=== PATIENT | female | born 1980 | race Caucasian/White ===

== ENCOUNTER 2017-09-25 05:23 | Emergency (ER) | payer BC ==
[~2017-09-25] VITALS: Ht 160 cm; Wt 118.1 kg
[~2017-09-25 05:23] MED LIST: LORA0.5T PO
[2017-09-25] MEDS ORDERED: acetaminophen 325mg tablet PO STA (05:48)
[2017-09-25] MEDS ORDERED: normal saline 1000ML IV soln IV ONE (05:50)
[2017-09-25 06:14] LABS: BASOPHILS % (AUTO) 0.5 % (0-1); EOSINOPHILS # (AUTO) 0.2 X10'3 (0-0.9); EOSINOPHILS % (AUTO) 2.5 % (0-6); HEMOGLOBIN 11.1 g/dl (12.0-16.0); LYMPHOCYTES # (AUTO) 0.8 X10'3 (1.1-4.8); LYMPHOCYTES % (AUTO) 8.5 % (21-51); MEAN CORPUSCULAR HEMOGLOBIN 23.8 PG (27.0-31.0); MEAN CORPUSCULAR HGB CONC 32.6 % (33.0-36.5); MEAN PLATELET VOLUME 7.5 FL (7.4-10.4); MONOCYTES # (AUTO) 0.6 X10'3 (0-0.9); MONOCYTES % (AUTO) 6.5 % (2-12); NEUTROPHILS # (AUTO) 7.4 X10'3 (1.8-7.7); PLATELET COUNT 312 X10'3 (140-440); RED BLOOD COUNT 4.65 X10'6 (4.20-5.60); RED CELL DISTRIBUTION WIDTH 17.3 % (11.5-14.5)
[2017-09-25 06:26] LABS: PARTIAL THROMBOPLASTIN TIME 25 SECONDS (22-32); PROTHROMBIN TIME 10.8 SECONDS (9.0-12.0)
[2017-09-25 06:31] LABS: ALANINE AMINOTRANSFERASE 29 U/L (12-78); ALBUMIN 3.1 G/DL (3.4-5.0); ALBUMIN/GLOBULIN RATIO 0.8 (1.1-1.5); ALKALINE PHOSPHATASE 103 IU/L (46-116); ANION GAP 12 (8-16); ASPARTATE AMINO TRANSFERASE 14 U/L (10-37); BILIRUBIN,TOTAL 0.5 MG/DL (0.1-1.0); BLOOD UREA NITROGEN 12 MG/DL (7-18); BUN/CREATININE RATIO 12.4 (6.6-38.0); CALCIUM 8.3 MG/DL (8.5-10.1); CHLORIDE 104 MMOL/L (99-107); CREATININE 0.97 MG/DL (0.40-0.90); GLUCOSE 95 MG/DL (70-104); MAGNESIUM 1.7 MG/DL (1.5-2.4); POTASSIUM 3.8 MMOL/L (3.5-5.1); SODIUM 140 MMOL/L (135-145); TOTAL CARBON DIOXIDE 23.7 MMOL/L (24-32); TOTAL PROTEIN 7.2 G/DL (6.4-8.2); eGFR 64 ML/MIN
[2017-09-25] MEDS ORDERED: HYDROcodone/acetaminophen 10/325mg tab PO ONE (08:55)
[2017-09-25 10:08] LABS: URINE HCG NEGATIVE (NEG)
[2017-09-25 10:11] LABS: CLARITY,URINE SLIGHTLY CLOUDY (Clear); COLOR,URINE YELLOW (Yellow); GLUCOSE, URINE NEGATIVE (Neg); KETONES,URINE NEGATIVE (Neg); LEUKOCYTE ESTERASE ,URINE NEGATIVE (Neg); NITRITES, URINE NEGATIVE (Neg); OCCULT BLOOD,URINE MODERATE (Neg); PROTEIN,URINE TRACE mg/dl (Neg); UROBILINOGEN,URINE 0.2 E.U/dL (0.2-1.0)
[2017-09-25 10:13] LABS: UA COLLECTION TYPE CLN CATCH MIDSTREAM
[2017-09-25 10:17] LABS: BACTERIA,URINE FEW /HPF (Neg); MUCUS STRANDS MODERATE /LPF (Neg); RBC,URINE 20-50 /HPF (0-2); SQUAMOUS EPITHELIAL CELL,UR MANY /LPF (FEW); WBC,URINE 0-4 /HPF (0-4)
[2017-09-25] MEDS ORDERED: LEVO500T2 PO (10:28)
[2017-09-25] MEDS ORDERED: GUAI600T45 PO (10:28)
[2017-09-25 11:29] VITALS: BP 136/88
== END 2017-09-25 11:31 | disposition home or self-care (01) ==
LOC: ER 05:24
DX: J06.9 Acute upper respiratory infection, unspecified (principal); G89.18 Other acute postprocedural pain; F17.200 Nicotine dependence, unspecified, uncomplicated; Z88.2 Allergy status to sulfonamides; Z90.710 Acquired absence of both cervix and uterus; Z79.899 Other long term (current) drug therapy; Z98.890 Other specified postprocedural states
CPT/HCPCS: 36415; 71045; 80053; 81001; 81025; 83605; 83735; 84145; 85025; 85610; 85730; 87040; 96360; 96361; 99285; J7030

== ENCOUNTER 2024-09-11 08:21 | Emergency (ER) | payer BC ==
[~2024-09-11] VITALS: Ht 160 cm; Wt 121.2 kg
[~2024-09-11 08:21] MED LIST changes: +GUAI600T45 PO
[2024-09-11 10:06] LABS: BASOPHILS # (AUTO) 0.1 X10'3 (0-0.2); BASOPHILS % (AUTO) 0.6 % (0-1); EOSINOPHILS # (AUTO) 0.4 X10'3 (0-0.9); EOSINOPHILS % (AUTO) 3.7 % (0-6); HEMATOCRIT 44.6 % (35.0-45.0); HEMOGLOBIN 14.8 g/dl (12.0-16.0); LYMPHOCYTES # (AUTO) 2.2 X10'3 (1.1-4.8); MEAN CORPUSCULAR HEMOGLOBIN 29.2 PG (27.0-31.0); MEAN CORPUSCULAR HGB CONC 33.2 g/dL (33.0-36.5); MEAN PLATELET VOLUME 7.5 FL (7.4-10.4); MONOCYTES # (AUTO) 0.6 X10'3 (0-0.9); MONOCYTES % (AUTO) 6.3 % (2-12); NEUTROPHILS # (AUTO) 6.4 X10'3 (1.8-7.7); NEUTROPHILS % (AUTO) 66.4 % (42-75); PLATELET COUNT 278 X10'3 (140-440); RED BLOOD COUNT 5.06 X10'6 (4.20-5.60); RED CELL DISTRIBUTION WIDTH 14.3 % (11.5-14.5); WHITE BLOOD COUNT 9.6 X10'3 (4.5-11.0)
[2024-09-11 10:12] LABS: APTT 27 SECONDS (22-32); INR 1.1 INR; PROTHROMBIN TIME 11.2 SECONDS (9.0-12.0)
[2024-09-11 10:14] LABS: ALANINE AMINOTRANSFERASE 43 U/L (12-78); ALBUMIN 3.8 G/DL (3.4-5.0); ALBUMIN/GLOBULIN RATIO 1.1 (1.1-1.5); ALKALINE PHOSPHATASE 116 IU/L (46-116); ANION GAP 6 (8-16); ASPARTATE AMINO TRANSFERASE 13 U/L (10-37); BILIRUBIN,TOTAL 0.4 MG/DL (0.1-1.0); BLOOD UREA NITROGEN 15 MG/DL (7-18); BUN/CREATININE RATIO 18.8 (10.0-20.0); CALCIUM 8.9 MG/DL (8.5-10.1); CHLORIDE 105 MMOL/L (99-107); GLUCOSE 92 MG/DL (70-104); POTASSIUM 4.1 MMOL/L (3.5-5.1); SODIUM 141 MMOL/L (135-145); TOTAL CARBON DIOXIDE 30.3 MMOL/L (24-32); TOTAL PROTEIN 7.3 G/DL (6.4-8.2); eCRCL 73 ML/MIN; eGFR 78 ML/MIN
[2024-09-11 10:19] LABS: HCG SERUM QL NEGATIVE
[2024-09-11] MEDS ORDERED: AMOX-580 PO (11:35)
[2024-09-11 11:43] LABS: BILIRUBIN,URINE NEGATIVE (Neg); CLARITY,URINE CLEAR (Clear); COLOR,URINE YELLOW (Yellow); GLUCOSE, URINE NEGATIVE (Neg); KETONES,URINE NEGATIVE (Neg); LEUKOCYTE ESTERASE ,URINE MODERATE (Neg); NITRITES, URINE NEGATIVE (Neg); OCCULT BLOOD,URINE MODERATE (Neg); PROTEIN,URINE NEGATIVE (Neg); UROBILINOGEN,URINE 0.2 E.U/dL (0.2-1.0)
[2024-09-11 11:56] LABS: UA COLLECTION TYPE CLN CATCH MIDSTREAM
[2024-09-11 11:57] LABS: WBC,URINE 20-30 /HPF (0-4)
[2024-09-11 11:58] LABS: BACTERIA,URINE 2+ /HPF (Neg); SQUAMOUS EPITHELIAL CELL,UR MODERATE /LPF (FEW)
[2024-09-11 11:59] LABS: WBC CLUMPS,URINE FEW /HPF (NEGATIVE)
[2024-09-11 12:22] VITALS: BP 139/86; PULSE 78; RESP 16; TEMP 98; O2SAT 97
== END 2024-09-11 12:23 | disposition home or self-care (01) ==
LOC: ER 08:22
DX: N75.0 Cyst of Bartholin's gland (principal); Z88.2 Allergy status to sulfonamides; Z90.710 Acquired absence of both cervix and uterus; Z98.890 Other specified postprocedural states
CPT/HCPCS: 36415; 76856; 80053; 81001; 84703; 85025; 85610; 85730; 87088; 93976; 99284

== ENCOUNTER 2024-10-31 12:24 | Emergency (ER) | payer BC ==
[~2024-10-31] VITALS: Ht 160 cm; Wt 129.8 kg
[2024-10-31 12:30] VITALS: BP 151/90; PULSE 82; RESP 18; O2SAT 100
[2024-10-31] MEDS ORDERED: MECL-302 PO (12:49)
[2024-10-31 12:57] VITALS: TEMP 97.4
== END 2024-10-31 12:59 | disposition home or self-care (01) ==
LOC: ER 12:25
DX: T63.301A Toxic effect of unspecified spider venom, accidental (unintentional), initial encounter (principal); R42 Dizziness and giddiness; Z90.710 Acquired absence of both cervix and uterus; Z88.2 Allergy status to sulfonamides; Y92.89 Other specified places as the place of occurrence of the external cause
CPT/HCPCS: 99282